=== PATIENT | male | born 1990 | race African-American/Black ===

== ENCOUNTER 2019-01-17 23:58 | Inpatient (IN) | payer OTHER ==
[~2019-01-17] VITALS: Ht 177.8 cm; Wt 88.6 kg
[2019-01-18] VITALS (7 sets, daily range): BP systolic 105–119; BP diastolic 64–75
[2019-01-18 00:42] LABS: BASO # 0.1 x10^3/uL (0.0-0.2); BASO % 1 % (0-3); EOS # 0.1 x10^3/uL (0.0-0.7); EOS % 1 % (0-3); HEMATOCRIT 41.2 % (39.0-53.0); HEMOGLOBIN 13.5 g/dL (13.0-17.5); LYMPH # 2.5 x10^3/uL (1.0-4.8); LYMPH % 39 % (24-48); MEAN CORPUSCULAR HEMOGLOBIN 28 pg (25-35); MEAN CORPUSCULAR HGB CONC 33 g/dL (31-37); MEAN CORPUSCULAR VOLUME 85 fL (79-100); MONO # 0.4 x10^3/uL (0.0-1.1); MONO % 6 % (0-9); NEUT # 3.4 x10^3uL (1.8-7.7); NEUT % 53 % (31-73); PLATELET COUNT 136 x10^3/uL (140-400); RED BLOOD COUNT 4.85 x10^6/uL (4.30-5.70); RED CELL DISTRIBUTION WIDTH 14.2 % (11.5-14.5); WHITE BLOOD COUNT 6.4 x10^3/uL (4.0-11.0)
[2019-01-18 00:48] LABS: BACTERIA,URINE 0 /HPF (0-FEW); BILIRUBIN,URINE NEG (NEG); CLARITY,URINE CLEAR; COLOR,URINE STRAW; GLUCOSE,URINE NEG (NEG); NITRITE,URINE NEG (NEG); RBC,URINE 0 /HPF (0-2); UROBILINOGEN,URINE 0.2 mg/dL (0.2 mg/dL); WBC,URINE OCC /HPF (0-4)
[2019-01-18 00:52] LABS: BARBITURATES NEG (NEG); BENZODIAZEPINES NEG (NEG); CANNABINOIDS NEG (NEG); COCAINE NEG (NEG); METHADONE NEG (NEG); OPIATES NEG (NEG); PHENCYCLIDINE NEG (NEG)
[2019-01-18 00:53] LABS: AMPHETAMINE/METHAMPHETAMINE NEG (NEG)
[2019-01-18 00:56] LABS: ALBUMIN 3.9 g/dL (3.4-5.0); ALBUMIN/GLOBULIN RATIO 1.2 (1.0-1.7); CALCIUM 9.3 mg/dL (8.5-10.1); CREATININE 1.4 mg/dL (0.7-1.3); GFR 61.3; POTASSIUM 3.6 mmol/L (3.5-5.1); TOTAL BILIRUBIN 1.3 mg/dL (0.2-1.0); TOTAL PROTEIN 7.1 g/dL (6.4-8.2)
--- NOTE | 2019-01-18 00:56 | PHYS DOC ---
Adult General Chief Complaint Chief Complaint: SEIZURE HPI HPI Patient is a 28-year-old male who arrives via EMS after reportedly having recurrent seizures in [facility] this evening. Patient reportedly has history of seizure disorder. Additional history is limited as patient isn't postictal state.[] Review of Systems Review of Systems Constitutional: Denies fever or chills [] Respiratory: Denies cough or shortness of breath [] Cardiovascular: No additional information not addressed in HPI [] GI: No reported vomiting or diarrhea [] Neurologic: Positive seizure activity[] Unable to fully assess review of systems due to post ictal state. Allergies Allergies Allergies Coded Allergies Type Severity Reaction Last Updated Verified Fish Containing Products Allergy Unknown 01/18/19 Yes Physical Exam Physical Exam Constitutional: Well developed, well nourished, postictal. [] HENT: Normocephalic, atraumatic, bilateral external ears normal, oropharynx moist, no oral exudates, nose normal. [] Eyes: PERRLA, EOMI, conjunctiva normal, no discharge. [] Neck: Normal range of motion, no tenderness, supple, no stridor. [] Cardiovascular: Regular rate and rhythm[] Lungs & Thorax: Bilateral breath sounds clear to auscultation [] Abdomen: Bowel sounds normal, soft, no tenderness. [] Skin: Warm, dry, no erythema, no rash. [] Extremities: No tenderness, no cyanosis, no clubbing, ROM intact, no edema. [] Neurologic: Postictal, unable to fully assess neurological status due to post ictal state. [] Current Patient Data Lab Results Laboratory Tests Test 01/18/19 00:05 White Blood Count 6.4 x10^3/uL (4.0-11.0) Red Blood Count 4.85 x10^6/uL (4.30-5.70) Hemoglobin 13.5 g/dL (13.0-17.5) Hematocrit 41.2 % (39.0-53.0) Mean Corpuscular Volume 85 fL (79-100) Mean Corpuscular Hemoglobin 28 pg (25-35) Mean Corpuscular Hemoglobin Concent 33 g/dL (31-37) Red Cell Distribution Width 14.2 % (11.5-14.5) Platelet Count 136 x10^3/uL (140-400) L Neutrophils (%) (Auto) 53 % (31-73) Lymphocytes (%) (Auto) 39 % (24-48) Monocytes (%) (Auto) 6 % (0-9) Eosinophils (%) (Auto) 1 % (0-3) Basophils (%) (Auto) 1 % (0-3) Neutrophils # (Auto) 3.4 x10^3uL (1.8-7.7) Lymphocytes # (Auto) 2.5 x10^3/uL (1.0-4.8) Monocytes # (Auto) 0.4 x10^3/uL (0.0-1.1) Eosinophils # (Auto) 0.1 x10^3/uL (0.0-0.7) Basophils # (Auto) 0.1 x10^3/uL (0.0-0.2) EKG EKG [] Radiology/Procedures Radiology/Procedures [] Impressions: PROCEDURE: CT HEAD WO CONTRAST PQRS Compliance Statement: One or more of the following individualized dose reduction techniques were utilized for this examination: 1. Automated exposure control 2. Adjustment of the mA and/or kV according to patient size 3. Use of iterative reconstruction technique CT HEAD WITHOUT CONTRAST History: Seizure activity, confusion. Comparison: CT head without contrast, January 13, 2019. Procedure: Axial images are obtained of the head from the skull base through the vertex without IV contrast. Findings: The ventricles and sulci are normal for the patient's age. No mass-effect, midline shift, hemorrhage, extra-axial fluid collection, or obvious acute infarction is identified. Basilar cisterns are patent. Bone windows demonstrate no acute calvarial abnormality. The visualized paranasal sinuses are clear. Mastoid air cells are well aerated. IMPRESSION: No acute intracranial abnormality. Electronically signed by: Renzo Reddy MD (01/18/2019 12:53 AM) [facility] Course & Med Decision Making Course & Med Decision Making Pertinent Labs and Imaging studies reviewed. (See chart for details) Patient moved to room upon arrival was evaluated by your medical staff after which blood work was drawn and CT of the head was obtained. Lactic acid had been en route to evaluate for seizure activity. Lactate was marginally elevated which was questionable for seizure. Patient did demonstrate additional seizure- like activity after arrival and prior to providing additional dosing of lorazepam, seizure-like activity had resolved. Patient was given a dose of Keppra 1 g IV. Patient ultimately admitted for recurrent seizure activity. Dragon Disclaimer Dragon Disclaimer This electronic medical record was generated, in whole or in part, using a voice recognition dictation system. Departure Departure: Impression: Primary Impression: Recurrent seizures Disposition: ADMITTED INPATIENT Admitting Physician: Jacki Booth Condition: IMPROVED VIKASH CANALES Jr. DO Jan 18, 2019 00:56
[2019-01-18] MEDS ORDERED: IV NORMAL SALINE 100ML 100 ML ONE (01:43)
[2019-01-18] MEDS ORDERED: levETIRAcetam 500 MG/5 ML VIAL IV ONE (01:43)
[2019-01-18] MEDS ORDERED: KETOROLAC 30 MG/ML VIAL. IV ONE (02:15)
[2019-01-18] MEDS: IV NORMAL SALINE 1,000ML 1,000 ML IV SCH ×3 (02:24→18:24)
[2019-01-18] MEDS ORDERED: OMEP20CA10 PO (04:54)
[2019-01-18] MEDS ORDERED: ACET500T68 PO (04:54)
[2019-01-18] MEDS ORDERED: CICL6.1H4 IH (04:54)
[2019-01-18] MEDS ORDERED: PHEN28OI RC (04:54)
[2019-01-18] MEDS ORDERED: XOPENEX HFA15 GM IH (04:54)
[2019-01-18] MEDS ORDERED: GABA600T7 PO (04:54)
[2019-01-18] MEDS ORDERED: POLY2500 PO (04:54)
--- NOTE | 2019-01-18 05:42 | NUR ---
The patient, ADELITA MCKAY, 28 y/o, M admitted by MARY KAMINSKI MD, was given written information regarding hospital policies, unit procedures and contact persons. Patient arrived @0355 via gurney accompanied by EMS and two group home guards. Patient oriented to unit routines and policies. Patient has no valuables present on admission. Patient handcuffed and supervised by [employer] guards present in room.
[2019-01-18] MEDS: oxyCODONE IR 5 MG TABLET PO PRN ×3 (09:26→20:55)
[2019-01-18] MEDS ORDERED: levETIRAcetam 500 MG TABLET PO SCH (09:30)
[2019-01-18] MEDS ORDERED: FLUTICASONE 50MCG/NASAL SPRAY 16GM BOTTLE. NS SCH (10:00)
[2019-01-18] MEDS ORDERED: NON FORMULARY ITEM (Levalbuterol Tartrate (Xopenex Hfa) 2 PUFF) IH PRN (10:00)
[2019-01-18] MEDS ORDERED: ALBUTEROL SULFATE 2.5 MG/3 ML NEBU. NEB PRN (10:15)
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
--- NOTE | 2019-01-18 12:16 | NUR ---
NURSING NOTE: At approx. 1030, this nurse was in pt's room when his right hand began to shake. Pt stated to this nurse that this is what happened before his seizures yesterday. This nurse observed the pt and at approx. 1036, this nurse observed the shaking in the pt's right hand had progressed into his shoulder. At this time, this nurse asked another nurse to bring Ativan and come assist. Pt progressed to full body seizure and Ativan administered IV at approx. 1040. Dr. Booth notified and did observe pt's seizing. New orders received to change Keppra from PO to IV. Pt's seizing stopped at approx. 1042 and vital signs assessed. Pt not responsive but vital signs stable. Pt opened his eyes at 1050 but pt unable to answer questions. Vital signs reassessed at this time and remained stable. On reassessment at 1115, pt still very sedated, but able to state his name. Continue to monitor.
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
--- NOTE | 2019-01-18 17:43 | NUR ---
NURSING NOTE: At approx. 1655, pt's call light went off and when this nurse entered the room, pt stated that his hand was shaking again. This nurse called for other nurse to bring Ativan to pt's room and pt began having seizure-like activity at 1656. Pt monitored closely and positioned for safety. Ativan administered IV at 1700. Activity stopped at 1705. Vital signs assessed and noted to be stable. Pt opened his eyes at 1709 but was unresponsive to questions. Vital signs reassessed and continued to be stable. Dr. Sheets notified of seizure-like activity and while this nurse was on the phone with him, this nurse was notified by other nurse that pt had begun to have activity again. Dr. Sheets notified and stated that he would be up to see pt shortly. Second round of seizure-like activity noted to have started at approx. 1715. Pt monitored closely and activity ceased at 1722. Pt sleeping and breathing easily at that time. Dr. Sheets arrived to assess pt at approx. 1730. New orders received for EEG and increase Keppra dose to 750mg IV BID. Per Dr. Sheets, if inpatient EEG unavailable, outpatient EEG would be acceptable. Continue to monitor.
[2019-01-19] MEDS: oxyCODONE IR 5 MG TABLET PO PRN ×3 (01:09→16:10)
[2019-01-19 06:04] VITALS: BP 121/73
[2019-01-19 06:28] LABS: BASO % 0 % (0-3); EOS # 0.1 x10^3/uL (0.0-0.7); EOS % 2 % (0-3); HEMATOCRIT 39.2 % (39.0-53.0); LYMPH # 1.7 x10^3/uL (1.0-4.8); LYMPH % 30 % (24-48); MEAN CORPUSCULAR HEMOGLOBIN 28 pg (25-35); MEAN CORPUSCULAR HGB CONC 33 g/dL (31-37); MEAN CORPUSCULAR VOLUME 85 fL (79-100); MONO # 0.3 x10^3/uL (0.0-1.1); MONO % 6 % (0-9); NEUT # 3.4 x10^3uL (1.8-7.7); NEUT % 62 % (31-73); PLATELET COUNT 127 x10^3/uL (140-400); RED BLOOD COUNT 4.62 x10^6/uL (4.30-5.70); WHITE BLOOD COUNT 5.5 x10^3/uL (4.0-11.0)
[2019-01-19 06:38] LABS: CALCIUM 8.6 mg/dL (8.5-10.1); CREATININE 1.3 mg/dL (0.7-1.3); GFR 80.7; POTASSIUM 4.1 mmol/L (3.5-5.1)
--- NOTE | 2019-01-19 08:50 | NUR ---
Pt is drowsy but oriented. States he has been shaking this morning and is doing it now, pt does have some tremors in arms. Pt gets IV keppra. RN informed patient that he will be getting his medication to help with seizures. Pt was asking to shower, pt informed since he is a fall risk with seizures we would have to do a bed bath. Pt agreed to this. Pt can move all extremities normally, just feels weak and is drowsy. No seizures noted last night. WCTM.
--- NOTE | 2019-01-19 08:54 | NUR ---
Pt asking about side effects of keppra. RN replied she didn't know at this time but would give patient education about the side effects, asked patient if he wanted me to hold the medication first. Pt reported "no, go ahead and give it". IV austen talavera, RN provided education sheets about IV and oral keppra to patient.
--- NOTE | 2019-01-19 09:18 | NUR ---
RN called to patients room. Pt has violent tremors stiff. Eyes rolled back into head. Not responding. HR remained 60's-70's on tele. RN administered 2mg IV ativan. RN notified Dr Sheets. This episode lasted about 30 seconds. When patient stopped shaking, RN opened eyes, they were fixed, RN waved hand close to eyes, no attempt to deflect hand, move eyes or close eyes. Within 5 minutes patient is asking, "what happened". No new orders, Dr Sheets will be here to see patient. Addendum: 01/19/19 at 0928 by XIOMARA BRUCE RN RN went back in to assess patient, pt sleeping, RN woke patient asked if he knew where he was, pt looked around and said "in bed". Then began asking when he can have his shower or at least be wiped down. RN replied, no shower and we will get you cleaned up later, we need to let your body rest. [facility].
[2019-01-19 09:19] VITALS: BP 138/67
[2019-01-19 10:51] VITALS: BP 127/72
--- NOTE | 2019-01-19 12:15 | PN ---
DATE: 01/19/2019 SUBJECTIVE: The patient is resting, slightly propped up in bed, no apparent distress. Nursing staff stated he has a brief seizure, lasts only about 30 seconds, after which he was able to answer question appropriately. OBJECTIVE: GENERAL: When I saw him this morning, he looked well and was clearly in no apparent respiratory distress. No pallor, jaundice, cyanosis, or thyromegaly. No jugular venous distension. No limb edema. VITAL SIGNS: Her heart rate was 71, blood pressure was 138/67, temperature was 97.5, respiratory rate was 20, and oxygen saturation was 99%. HEAD, EYES, EARS, NOSE AND THROAT: Showed normocephalic, atraumatic. NECK: Supple. HEART: Showed normal first and second heart sounds with no gallop, rub or murmur. CHEST: Clear to auscultation. No crepitation or rhonchi. ABDOMEN: Distended, soft, nontender. No guarding or rigidity. No organomegaly. All hernial orifices intact. Bowel sounds normal. NEUROLOGIC: He was awake, alert, responding appropriately. All his cranial nerves are intact. He moves extremities without difficulty. His intake over the last 24 hours 2500, output 2975. LABORATORY DATA: Her lab work this morning showed a white cell count 5500; hemoglobin 13; hematocrit 39; MCV 85 and platelet count of 127,000. His chemistry showed that his serum sodium was 141, potassium 4.1, chloride 106, bicarbonate 27, anion gap of 8, BUN 10, creatinine 1.3, estimated GFR was 80 mL per minute. His glucose was 88 and calcium was 8.6. ASSESSMENT AND PLAN: The patient stated that he has had seizures during childhood and apparently has been off his antiepileptic medication. He has had multiple seizures recently, two in the Emergency Room and at least one yesterday here. He is now on Keppra at 750 mg IV twice a day. He is also on lorazepam 2 mg IV as needed for seizure breakthrough, oxycodone for pain management as he has pain in his right shoulder and albuterol sulfate by nebulizer every 4 hours as needed. MARY KAMINSKI MD DR: REGIS/paul JOB#: [id number] / [id number]
[2019-01-19 13:33] VITALS: BP 120/76
--- NOTE | 2019-01-19 13:47 | NUR ---
1330- Changing patient bed, guard helping patient stand. Linens changed. Pt sat back down and encouraged to scoot self back up in bed. Once he was done scooting self up, pt became unresponsive and became stiff and shaking. Arms straight, in prone position, hands in fist, stiff. Head thrown around. Legs stiff and shaking. HR remained in 70's, BP after event normal at 120's/70's. Dr Sheets notified, came right after event to evaluate patient. Car Bracer lifted eye lid, pts eyes looking a building analyst/supervisor. When eyelid let go, they did not initially shut all the way and then patient shut them. No ecotopy on monitor. WCTM.
[2019-01-19 19:15] VITALS: BP 124/79
[2019-01-19] MEDS ORDERED: SENNOSIDES 8.6 MG TABLET PO PRN (19:15)
[2019-01-19] MEDS ORDERED: POLYETHYLENE GLYCOL 3350 17 GM PACKET. PO PRN (19:15)
[2019-01-19 23:00] VITALS: BP 124/79
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
--- NOTE | 2019-01-20 05:08 | PN ---
DATE: 01/18/2019 SUBJECTIVE: I was called to see the patient after he had another spell described as generalized stiffness of the upper and lower extremities, arching his upper chest wall in head and some foaming at the mouth. The spell lasted approximately 2-3 minutes and followed by a post-event unresponsiveness. The patient has been on Keppra intravenously at 500 mg b.i.d. OBJECTIVE: GENERAL: Well-developed, well-nourished -[place] male, not in acute distress. VITAL SIGNS: Blood pressure 105/64, respiratory rate 18, pulse is 77, oxygen saturation 97% on room air, afebrile. HEENT: Normocephalic, atraumatic, otherwise unremarkable. NECK: Supple. Negative for carotid bruit, lymphadenopathy or thyromegaly. LUNGS: Clear to A and P. CARDIOVASCULAR: Regular rhythm, normal S1, S2. ABDOMEN: Soft. Bowel sounds positive. EXTREMITIES: Negative for cyanosis, clubbing or edema. NEUROLOGICAL EXAM: Mental Status: The patient is drowsy, but arousable. He did not respond to any commands verbally however. Cranial nerves are grossly intact. No focal motor or sensory deficit. However, the patient moves his upper and lower extremities equally and slowly. Sensory examination revealed normal pinprick and light touch senses. Deep tendon reflexes were hypoactive with absent Achilles responses. Gait not tested. IMPRESSION: Recurrent seizure-like activities, etiology uncertain. RECOMMENDATIONS: 1. We will increase Keppra to ____ mg to be given intravenously twice daily. If the patient has another seizure, we will check prolactin level. 2. Await for electroencephalogram. M Faby CARMONA MD DR: IVET/paul JOB#: [id number] / [id number]
[2019-01-20 07:46] VITALS: BP 116/70
[2019-01-20] MEDS ORDERED: levETIRAcetam 500 MG TABLET PO SCH (09:00)
[2019-01-20] MEDS ORDERED: OXYC5TAB4 PO (09:19)
[2019-01-20] MEDS ORDERED: LEVE100020 PO (09:19)
[2019-01-20] MEDS: oxyCODONE IR 5 MG TABLET PO PRN (09:34)
--- NOTE | 2019-01-20 09:46 | PN ---
DATE: SUBJECTIVE: The patient denies any new medical neurological complaints. He has not had seizure since yesterday morning. He denies headaches, visual disturbances, nausea, vomiting, chest pain, shortness of breath or palpitation. OBJECTIVE: GENERAL: Well-developed, well-nourished -Indian male, not in acute distress. VITAL SIGNS: Blood pressure 116/70, respiratory rate 18, pulse is 58, temperature 97.7, oxygen saturation is 98% on room air. HEENT: Normocephalic, atraumatic, otherwise unremarkable. NECK: Supple. Negative for carotid bruit, lymphadenopathy or thyromegaly. LUNGS: Clear to A and P. CARDIOVASCULAR: Regular rhythm, normal S1, S2. There is no S3, S4 or murmur. ABDOMEN: Soft. Bowel sounds positive. EXTREMITIES: Negative for cyanosis, clubbing or edema. NEUROLOGICAL EXAM: Mental Status: The patient is alert and oriented x 3. Speech is fluent. There is no language dysfunction, otherwise unremarkable. Cranial nerves are intact. No focal motor or sensory deficit. Deep tendon reflexes were symmetric and active. Gait not tested. LABORATORY DATA: Prolactin level is 20.6. IMPRESSION: Seizure disorder, etiology is uncertain, with elevated prolactin level. However, 20% of people who have epileptic seizure, can have also psychogenic seizure, but because prolactin level is elevated after the seizure, we will go ahead and increase Keppra to 1000 mg b.i.d. We will schedule the patient for electroencephalogram on an outpatient through Dr. Carmona's office. M Faby CARMONA MD DR: VIET/paul JOB#: [id number] / [id number]
--- NOTE | 2019-01-20 10:58 | NUR ---
PATIENT DISCHARGED BACK TO [facility]. PATIENTS IV REMOVED, TELE MONITOR REMOVED, PATIENT HAS ALL BELONGINGS WITH HIM AT TIME OF DISCHARGE. PATIENT AMBULATED OFF UNIT ACCOMPANIED BY GUARDS.
--- NOTE | 2019-01-20 21:12 | DS ---
DATE OF DISCHARGE: 01/20/2019 HOSPITAL COURSE: The patient is a 28-year-old -[place] male patient who was admitted with recurrent bouts of seizure. Apparently, he had 2 witnessed seizures at the [facility]. He had 2 witnessed seizures also in the Emergency Room and had also one more in the hospital. He was seen by Dr. Sheets, and he was given a loading dose of Keppra 1000 mg and 500 mg p.o. twice a day, however, he had the breakthrough seizures so his Keppra was increased to 750 twice a day and eventually 1000 mg. His prolactin was 20.6. His CT scan was unremarkable showing that the ventricles and sulci are normal for the patient's age. No mass effect, midline shift, hemorrhage, extraaxial fluid collection or obvious acute infarction identified. Basilar cisterns are patent. Bone windows demonstrate no acute calvarial abnormality, visualized paranasal sinuses are clear. Mastoid air cells are well aerated and discussion with Dr. Sheets. The plan was to discharge him back to [facility] and for him to be seen with Dr. Sheets's office for outpatient electroencephalogram. PHYSICAL EXAMINATION: GENERAL: When I saw him today, he looked well and was clearly in no apparent distress. He is definitely more awake, alert, responding appropriately. There was no pallor, jaundice, cyanosis, or thyromegaly. No jugular venous distention. No limb edema. VITAL SIGNS: His heart rate was 58, blood pressure 116/70, temperature was 97.7, respiratory rate was 18 and oxygen saturation was 98%. The rest of clinical exam is stable. His intake was 2500, output was 2975. LABORATORY DATA: Showed a white cell count 5500, hemoglobin 13, hematocrit 39, MCV 85 and platelet count of 127,000. His chemistry showed a serum sodium 141, potassium 4.1, chloride 106, bicarbonate 27, anion gap of 8, BUN 10, creatinine 1.3, estimated GFR was 80 mL per minute. His glucose was 88, calcium was 8.6. Prolactin was 20.6. DISCHARGE MEDICATIONS: He was discharged back to [facility] to continue on Keppra 1000 mg twice a day, oxycodone immediate release 5 mg every 4 hours, acetaminophen 1000 mg twice a day, Alvesco inhalers twice a day for bronchial asthma, gabapentin 600 mg at bedtime, Xopenex 2 puffs every 4-6 hours, omeprazole 20 mg daily, and Preparation-H ointment for hemorrhoids and polyethylene glycol 17 g p.o. b.i.d. FINAL DISCHARGE DIAGNOSES: 1. Recurrent seizures. 2. Bronchial asthma. 3. Gastroesophageal reflux disease. 4. Chronic back pain. MARY KAMINSKI MD DR: REGIS/paul JOB#: [id number] / [id number]
== END 2019-01-20 10:58 | disposition home or self-care (01) | DRG 101 ==
LOC: EEVIPCON 23:58 → ER 23:58 → ICU 01-18 02:12 → 1 SOUTH 01-18 03:43
PROVIDERS: ADMIT Internal Medicine; ATTEND Internal Medicine
DX: G40.909 Epilepsy, unspecified, not intractable, without status epilepticus (principal); F05 Delirium due to known physiological condition; G89.29 Other chronic pain; J45.909 Unspecified asthma, uncomplicated; K21.9 Gastro-esophageal reflux disease without esophagitis; Z79.899 Other long term (current) drug therapy; Z91.013 Allergy to seafood
CPT/HCPCS: 36415; 51702; 70450; 80048; 80053; 80307; 81001; 82947; 83605; 84146; 85025; 87641; 96374; 96375; J1885; J1953; J2060; 99285-25; J7030